=== PATIENT | male | born 1940 | race African-American/Black ===

== ENCOUNTER → 2020-04-15 | Day surgery (SDC) | payer MEDICARE, BC, OTHER ==
[2020-04-11 14:09] LABS: BASOPHILS % 0.4 % (0.0-1.0); EOSINOPHILS # (AUTO) 0.2 (0.0-0.4); EOSINOPHILS % 2.4 % (0.0-6.0); HEMATOCRIT 39.6 % (38.2-49.6); HEMOGLOBIN 12.1 g/dL (14.0-18.0); LYMPHOCYTES # (AUTO) 2.2 (1.0-3.2); LYMPHOCYTES % 31.7 % (18.0-39.1); MEAN CORPUSCULAR HEMOGLOBIN 26.5 pg (28-32); MEAN CORPUSCULAR HGB CONC 30.6 g/dL (31-35); MEAN CORPUSCULAR VOLUME 86.8 fL (81-99); MONOCYTES # (AUTO) 0.7 (0.2-0.8); MONOCYTES % 9.9 % (4.4-11.3); NEUTROPHILS # (AUTO) 3.9 (2.1-6.9); NEUTROPHILS % 55.3 % (38.7-80.0); PLATELET COUNT 223 x10e3/uL (140-360); RED BLOOD COUNT 4.56 x10e6/uL (4.3-5.7); RED CELL DISTRIBUTION WIDTH 12.3 % (11.7-14.4)
--- NOTE | 2020-04-11 15:08 | Diagnostic Imaging Report ---
EXAMINATION: CHEST 2 VIEWS INDICATION: Pre-operative COMPARISON: None FINDINGS: LINES/TUBES:None LUNGS:The lungs are well-inflated. No focal consolidation or pulmonary edema. PLEURA:No pleural effusion or pneumothorax. MEDIASTINUM:The cardiomediastinal silhouette appears normal in size and shape. BONES/SOFT TISSUES:No acute osseous injury. ABDOMEN:No free air under the diaphragm. IMPRESSION: No focal pneumonia or pulmonary edema. Signed by: Chavo Aden MD on 04/11/2020 3:05 PM
[~2020-04-15] MED LIST: ACETAMINOPHEN/CODEINE 300MG - 30MG TAB ONE; ATROPINE SULFATE 1 MG/ML VIAL ONE; CARVEDILOL12.5 MG PO; CEFAZOLIN SOD 1 GM/NS 50ML 50 ML IV ONE; EPHEDRINE SULFATE INJ 50 MG/ML VIAL ONE; FENTANYL CITRATE/PF 100MCG/2 ML INJ ONE; GLYCOPYRROLATE INJ 0.2 MG/ML VIAL ONE; LIDOCAINE HCL 2% LOCAL INJ 5 ML SDV VIAL INJ ONE; NIFEDIPINE ER30 M1 PO; ONDANSETRON HCL INJ 2MG/ML 2ML 2 MG/ML VIAL ONE; PROPOFOL IV EMULSION 10 MG/ML 20 ML VIAL ONE; SEVOFLURANE INHAL SOLN 250 ML PEN BTL ONE
[2020-04-15 09:20] VITALS: BP 192/89
--- NOTE | 2020-04-15 11:08 | Operative Report ---
DATE OF PROCEDURE: 04/15/2020 SURGEON: Suresh Ireland MD FINISH OPENER: Olivier Chiang, certified PA. PREOPERATIVE DIAGNOSES: 1. Bilateral carpal tunnel syndrome. 2. Mass, right 5th finger. POSTOPERATIVE DIAGNOSES: 1. Bilateral carpal tunnel syndrome. 2. Mass, right 5th finger. PROCEDURES: 1. Bilateral endoscopic carpal tunnel release. 2. Excisional biopsy of right 5th finger mass. INDICATIONS: The patient is a 79-year-old gentleman, who has a cystic-appearing mass over the dorsum of his right 5th finger proximal phalanx. He also has clinic signs and symptoms consistent with bilateral carpal tunnel syndrome. The findings and options have been discussed. He would like to have bilateral endoscopic carpal tunnel releases as well as an excisional biopsy of the mass. The risks and benefits of the procedure have been explained. The possibility of recurrence had been discussed. All of his questions have been answered. He states he understands and wishes to proceed. PROCEDURE IN DETAIL: The patient was brought to the operating room and placed under general anesthetic. A notable difficulty was encountered for anesthesia to establish a central IV. Initial attention was directed towards his right upper extremity. The extremity was prepped and draped in a sterile manner. A preoperative time-out was performed. The extremity was exsanguinated and a proximal tourniquet was inflated to 250 mmHg. A V-shaped incision was made over the dorsum of the right 5th proximal phalanx. A loculated cystic mass was encountered that was attached to the extensor tendon sheath. This was densely adherent to the undersurface of the skin. This was carefully dissected out. Clear mucinous fluid was decompressed from the cyst. The cystic lining was excised and sent to pathology. This wound was irrigated and then the skin was closed with a running 4-0 nylon stitches. Attention was then directed towards the carpal tunnel. An incision was made over the flexion crease of the right wrist. The palmaris longus was retracted to the radial side of the wound. The flexor retinaculum was elevated and incised. A retractor was placed. An elevator was used to tease the tenosynovium off the undersurface of the transverse carpal ligament. Dilators were placed and the hook of the hamate was palpated. The [employer] endoscope was then placed into the carpal tunnel. The undersurface of the transverse carpal ligament was cleanly visualized without evidence of soft tissue interposition. The knife was deployed and the ligament was cut from distal to proximal. A full-thickness cut was noted. The proximal retinaculum was incised under direct visualization with a pair of tenotomy scissors. The skin was then closed with 2 interrupted nylon stitches. A sterile bandage with a bolster over the 5th finger was placed. The tourniquet was deflated and then the same carpal tunnel release was performed on the left wrist. This was also placed into a sterile bandage. He was extubated and transported to the recovery room in stable condition. There was no blood loss and all needle and sponge counts were correct. Suresh Ireland MD DR/PRICILLA /[id number]
== END | disposition home or self-care (01) ==
LOC: OR 05:18
PROVIDERS: ATTEND Specialist
DX: M67.441 Ganglion, right hand (principal); G56.03 Carpal tunnel syndrome, bilateral upper limbs; G56.23 Lesion of ulnar nerve, bilateral upper limbs; M19.042 Primary osteoarthritis, left hand; M19.041 Primary osteoarthritis, right hand; M06.9 Rheumatoid arthritis, unspecified; I10 Essential (primary) hypertension; D64.9 Anemia, unspecified; I49.3 Ventricular premature depolarization; Z01.810 Encounter for preprocedural cardiovascular examination; Z01.812 Encounter for preprocedural laboratory examination; Z01.818 Encounter for other preprocedural examination; Z11.59 Encounter for screening for other viral diseases
CPT/HCPCS: 26160; 29848; 36415; 71046; 85025; 88304; 93005; J0461; J0690; J2001; J2405; J2704; J3010; U0002